=== PATIENT | female | born 1955 | race Caucasian/White ===

== ENCOUNTER 2017-06-02 06:08 | Observation (INO) | payer BC, OTHER ==
[~2017-06-02] VITALS: Ht 170.2 cm; Wt 90.7 kg
[2017-06-02] VITALS (9 sets, daily range): BP systolic 130–180; BP diastolic 62–97
--- NOTE | ~2017-06-02 | O ---
[facility] [place] [address] OPERATIVE REPORT Name: EUFEMIA JUNG Room #: 402-P [facility]#: [id number] Admission: 06/02/17 Attend Phys: Pio Wright MD Discharge: Date of : 57 Report #: [id number] THIS REPORT FOR: //name// CC: Jose Juan Wright DATE OF SERVICE: 06/02/2017 PREOPERATIVE DIAGNOSES: 1. Left ankle osteoarthritis. 2. Left hindfoot retained hardware. POSTOPERATIVE DIAGNOSES: 1. Left ankle osteoarthritis. 2. Left hindfoot retained hardware. PROCEDURE: 1. Left total ankle replacement. 2. Left hindfoot hardware removal. SURGEON: Pio Wright M.D. SWITCHBOARD OPERATOR HELPER: Alice Jenkins, critical care for positioning and safe performance of the procedure. ANESTHESIA: General. ESTIMATED BLOOD LOSS: 10 mL. DRAINS: None. TOURNIQUET TIME: 2 hours and 15 minutes. DESCRIPTION OF PROCEDURE: The patient was brought to the operating room where she was placed under general anesthesia. Once under adequate general anesthesia, her left lower extremity was prepped and draped in a sterile manner. The extremity was elevated, exsanguinated, tourniquet placed to 300 mmHg. The patient had two 7.3 mm cannulated screws placed through the posterior tuberosity of the calcaneus. These were then removed utilizing the guidewires for the 7.3 mm cannulated screws and hardware removal set. Once these 2 were removed, an anterior incision approximately 15 cm in length was made along the anterior ankle. Dissection was carried down to the interval between extensor hallucis longus and the anterior tibialis. Exposure was made at the ankle joint extending both medially and laterally to expose both malleoli. The entire anterior joint was able to be evaluated. The guide for the alignment jig was then placed, placing a pin in the proximal tibial tuberosity. The alignment jig [facility] [address] [place] [address] OPERATIVE REPORT Name: EUFEMIA JUNG Room #: 402-P [facility].#: [id number] Admission: 06/02/17 Attend Phys: Pio Wright MD Discharge: Date of : 57 Report #: [id number] was then adjusted for the first cut. This was from the STAR total ankle prosthesis. Once in line and fixed into place with pins, the guide for the tibial cut was then utilized to make the tibial cut with an oscillating saw and then subsequently a reciprocating saw to remove the tibial articular surface. Subsequent to this, the guide for the talar cutting was then placed as well and the posterior cut was then made. The subsequent anterior chamfer and dome cuts were then made. Once the talar cuts were complete, sizing was then made. An extra small talar dome and a medium tibial component were trialed. This seemed to fit well. Therefore, the final and subsequently the talar component was placed. The tibial component was drilled in place for the anterior portions and filled with bone graft from prior cuts and the final trials for the polyethylene were done. A 9 mm poly was then placed into the joint. Excellent alignment and motion was achieved with this, dorsiflexion at 10 degrees and plantar flexion to 40 degrees. Final films were taken noting excellent alignment. The wounds were irrigated copiously and closed in the capsular layer with 2-0 Vicryl, 2-0 Vicryl was used in the deep and subcutaneous tissues and then brandon were used for the skin. The wound was dressed with Xeroform, 4 x 4s and sterile soft compressive dressing was placed. Tourniquet was let down at approximately 2 hours and 15 minutes. Toes were pink and warm with good capillary refill. There were no complications from the procedure. The patient tolerated the procedure well and went to the recovery room without incident. By: 0914 1120 Pio Wright MD /nt
--- NOTE | ~2017-06-02 | EKG ---
[address] [place] [address] ELECTROCARDIOGRAM REPORT Name: EUFEMIA JUNG Room #: 402-P [facility] M.R.#: [id number] Admission: 06/02/17 Attend Phys: Pio Wright MD Discharge: Date of : 57 Report #: [id number] THIS REPORT FOR: //name// [facility] Test Date: 2017-06-02 Test Time: 06:38:11 Pat Name: EUFEMIA JUNG Department: Room: [facility] Gender: F Compensation Expert: CHEPE : 1955 Requested By: Wayne Colmenares Order Number: [id number] MD: Manjinder Razo Measurements Intervals Dudley Rate: 72 P: 42 WV: 162 QRS: -26 QRSD: 106 T: 22 QT: 438 QTc: 480 Interpretive Statements Sinus rhythm Borderline left axis deviation Compared to ECG 12/26/2014 08:37:15 No significant change was found Electronically Signed On 06-02-2017 16:27:39 CDT by Manjinder Razo [email or web address] <ELECTRONICALLY SIGNED> By: Manjinder Razo MD, [facility] 06/02/17 1627 638 7 Mnajinder Razo MD, FACC /EPI
[~2017-06-02 06:08] MED LIST: ACETAMINOPHEN325 M1 OR; BENICAR HCT 201 EACH OR; BYSTOLIC10 MG PO; COZAAR 25 MG TA25 M1 PO; GLIPIZIDE 10 MG10 MG PO; IBUPROFEN 200200 M1 PO; LORTAB 7.5/5001 TA3 OR; METFORMIN HCL500 MG PO; NABUMETONE 500500 M1 PO; PERCOCET 7.5-31 EACH PO; TOPROL XL50 MG OR; TRAMADOL 50 MG50 MG PO
[2017-06-03 04:18] LABS: HEMATOCRIT 36.3 % (37.0-47.0)
[2017-06-03 04:30] VITALS: BP 136/58
[2017-06-03 04:38] LABS: POTASSIUM 3.5 mmol/L (3.5-5.1)
[2017-06-03 08:14] VITALS: BP 138/69
[2017-06-03] MEDS ORDERED: PERCOCET 7.5-31 EACH PO (09:16)
[2017-06-03] MEDS ORDERED: ASPIR-TRIN325 MG PO (09:16)
[2017-06-03 09:24] VITALS: BP 138/69
[2017-06-03 11:24] VITALS: BP 122/62
[2017-06-03 15:17] VITALS: BP 159/62
== END 2017-06-03 15:15 | disposition home or self-care (01) ==
LOC: OR 06:08 → TBA 06:08 → OR 12:08 → 4N 12:09 → OR 14:41 → 4N 06-03 15:15 → ENTRNSPT 06-03 15:18 → EDTRNSPTSTS 06-03 15:20
PROVIDERS: Orthopaedic Surgery Foot and Ankle Surgery
DX: M19.072 Primary osteoarthritis, left ankle and foot (principal); I10 Essential (primary) hypertension; E11.9 Type 2 diabetes mellitus without complications; Z98.890 Other specified postprocedural states; Z79.899 Other long term (current) drug therapy; Z96.698 Presence of other orthopedic joint implants

== ENCOUNTER → 2017-11-07 | Outpatient (CLI) | payer BC, OTHER ==
[~2017-11-07] MED LIST changes: +ASPIR-TRIN325 MG PO
== END ==
LOC: CAT 08:47
DX: M19.072 Primary osteoarthritis, left ankle and foot (principal)

== ENCOUNTER → 2019-12-08 | Outpatient (CLI) | payer OTHER ==
[~2019-12-08] VITALS: Ht 170.2 cm; Wt 86.2 kg
[~2019-12-08] MED LIST changes: +COZAAR 50 MG TA50 M1 PO; +PREDNISONE 10 M10 MG PO
[2019-12-08 13:12] LABS: HEMATOCRIT 44.2 % (37.0-47.0); HEMOGLOBIN 14.9 gm/dL (12.0-15.0); MCH 33.1 pg (26.0-34.0); MCHC 33.8 g/dL (28.0-37.0); MCV 97.8 fL (80.0-100.0); RBC 4.52 mil/uL (4.20-5.00); RDW 13.2 % (10.5-14.5); WBC 6.8 thou/uL (4.0-11.0)
[2019-12-08 13:21] LABS: URINE BILIRUBIN NEGATIVE (Negative); URINE BLOOD NEGATIVE (Negative); URINE CLARITY CLEAR; URINE COLOR YELLOW; URINE GLUCOSE-RANDOM* NEGATIVE (Negative); URINE KETONES NEGATIVE (Negative); URINE LEUKOCYTES-REFLEX NEGATIVE (Negative); URINE NITRITE-REFLEX NEGATIVE (Negative); URINE PROTEIN (DIPSTICK) NEGATIVE (Negative); URINE UROBILINOGEN 0.2 E.U./dl (0.2-1.0)
[2019-12-08 13:26] LABS: ALBUMIN 4.2 g/dL (3.4-5.0); CALCIUM 9.6 mg/dL (8.5-10.1); CREATININE 0.8 mg/dL (0.6-1.0); POTASSIUM 3.7 mmol/L (3.5-5.1)
[2019-12-08 13:27] LABS: INR 1.1; PROTIME 10.9 Seconds (9.3-11.4)
[2019-12-08 23:07] LABS: GLYCOHEMOGLOBIN (HGB A1C) 6.1 % (4.8-5.6)
--- NOTE | 2019-12-09 07:52 | EKG ---
[facility] [place] [address] ELECTROCARDIOGRAM REPORT Name: EUFEMIA JUNG Room #: PRE IN M.R.#: [id number] Admission: Attend Phys: Ady Bird MD Discharge: Date of : 57 Report #: [id number] THIS REPORT FOR: cc: Jose Juan Doss James L. DO Lundgren, Craig H. MD [facility] THIS REPORT FOR: //name// [facility] Test Date: 2019-12-08 Test Time: 13:07:15 Pat Name: EUFEMIA JUNG Department: Room: Gender: F Greeting Card Writer: EDUARDO GAGNON : 1955 Requested By: Ady Bird Order Number: [id number] MD: Manjinder Razo Measurements Intervals Brogue Rate: 61 P: 32 IA: 145 QRS: -28 QRSD: 103 T: 42 QT: 437 QTc: 441 Interpretive Statements Sinus rhythm Borderline left axis deviation Compared to ECG 06/02/2017 06:38:11 No significant changes Electronically Signed On 12-09-2019 7:51:30 CDT by Manjinder Razo [email or web address] <ELECTRONICALLY SIGNED> By: Manjinder Razo MD, [facility] 12/09/19 0751 1307 130 Manjinder Razo MD, [facility] /EPI
== END ==
LOC: PAC 12:35 → TBA 12-22 08:45 → EDSTATUS 12-22 13:21
PROVIDERS: Orthopaedic Surgery
DX: Z01.818 Encounter for other preprocedural examination (principal); M17.11 Unilateral primary osteoarthritis, right knee

== ENCOUNTER 2020-02-21 06:08 | Inpatient (IN) | payer OTHER ==
[2020-02-15 11:04] LABS: HEMATOCRIT 42.4 % (37.0-47.0); HEMOGLOBIN 14.6 gm/dL (12.0-15.0); MCH 33.5 pg (26.0-34.0); MCHC 34.5 g/dL (28.0-37.0); MCV 97.3 fL (80.0-100.0); RBC 4.36 mil/uL (4.20-5.00); RDW 13.2 % (10.5-14.5)
[2020-02-15 11:08] LABS: URINE BILIRUBIN NEGATIVE (Negative); URINE BLOOD NEGATIVE (Negative); URINE CLARITY CLEAR; URINE COLOR YELLOW; URINE GLUCOSE-RANDOM* NEGATIVE (Negative); URINE KETONES NEGATIVE (Negative); URINE NITRITE-REFLEX NEGATIVE (Negative); URINE PROTEIN (DIPSTICK) NEGATIVE (Negative); URINE SPECIFIC GRAVITY <= 1.005 (1.005-1.035); URINE UROBILINOGEN 0.2 E.U./dl (0.2-1.0)
[2020-02-15 11:10] LABS: URINE LEUKOCYTES-REFLEX 1+ (Negative)
[2020-02-15 11:13] LABS: ALBUMIN 4.3 g/dL (3.4-5.0); CALCIUM 9.3 mg/dL (8.5-10.1); CREATININE 0.9 mg/dL (0.6-1.0); POTASSIUM 3.6 mmol/L (3.5-5.1)
[2020-02-15 11:16] LABS: PROTIME 10.7 Seconds (9.3-11.4)
[2020-02-15 12:52] LABS: CASTS None Seen /LPF (None Seen); SQUAMOUS 0-3 Few /LPF (0-3); URINE RBC None Seen /HPF (0-2); URINE WBC-REFLEX 0-5 Rare /HPF (0-5)
[2020-02-15 12:53] LABS: BACTERIA-REFLEX 1-9 Few /HPF (None Seen); CRYSTALS None Seen /LPF (None Seen)
[2020-02-16 03:08] LABS: GLYCOHEMOGLOBIN (HGB A1C) 6.1 % (4.8-5.6)
[~2020-02-21] VITALS: Ht 170.2 cm; Wt 86.2 kg
[2020-02-21] VITALS (8 sets, daily range): BP systolic 126–206; BP diastolic 63–83
--- NOTE | 2020-02-21 08:20 | NUR ---
SPIRITUAL CARE: PRE-SURGERY VISIT WITH PATIENT AND SPOUSE WAS COMPLETED BY THIS DRIFT MINER.
--- NOTE | 2020-02-21 13:47 | NUR ---
PATIENT ADMITTED FROM OR WITH RIGHT TOTAL KNEE REVISION, BEV DRESSING, DANIEL HOSE, POLAR PACK TO TO RIGHT KNEE. PATIENT ALERT AND ORIENTED X 4. UP WITH ASSIST OF GB AND WALKER. PATIENT ON REGULAR DIET. PATIENT HAS LEFT HAND IV WITH IV FLUIDS ORDERED. FEDNMXS1D DONE, EXCEPT CARE PLAN. PATIENT ARRIVED AT 1115. PATIENT C/O PAIN WITH RIGHT KNEE, PAIN MEDS GIVEN BY DARA/RN. WILL REPORT OFF TO THE PRIMARY NURSE/DARA/RN.
--- NOTE | 2020-02-21 19:42 | NUR ---
PT CARE ASSUMED AT 1430 FROM THE OR. A&Ox4. BLOOD GLUCOSE TWICE DAILY. SCD'S/DANIEL HOSES/ POLAR PACK IN PLACE. IV PATENT WITH NO REDNESS OR EDEMA. PT HAS URINATED AND WALKED TO THE BATHROOM. HAS GOTTEN UP WITH PT TODAY. NO NAUSEA OR VOMITTING. FLUIDS INFUSING. FALL PROTOCOL IN PLACE. PAIN MANAGED WELL. PT DECLINED FAMILY UPDATE. CALL LIGHT IN REACH. WILL CONTINUE TO MONITOR. REPORT GIVEN TO EDUARDO JADE.
[2020-02-22 00:35] VITALS: BP 134/58
[2020-02-22 03:20] VITALS: BP 135/67
--- NOTE | 2020-02-22 03:30 | NUR ---
ASSESSED AT START OF SHIFT PT A&OX4 RESTING IN BED. PAIN OF 5/10 MANAGED WITH PO PAIN MEDS SEE EMAR. UP WITH SBA WITH A WALKER TO THE [facility]. POLAR PACK, SCD'S AND BEV DRESSING IN PLACE. INCENTIVE SPIROMETER BY BEDSIDE. IV INTACT AND FLUIDS INFUISING. FALL PREC IN PLACE AND CALL LIGHT IN REACH WILL CONT WITH POC TILL EOS.
[2020-02-22 06:20] LABS: HEMATOCRIT 34.4 % (37.0-47.0); HEMOGLOBIN 11.7 gm/dL (12.0-15.0); MCH 33.6 pg (26.0-34.0); MCV 98.8 fL (80.0-100.0); RBC 3.48 mil/uL (4.20-5.00); RDW 13.3 % (10.5-14.5); WBC 9.6 thou/uL (4.0-11.0)
[2020-02-22 07:10] VITALS: BP 142/53
--- NOTE | 2020-02-22 11:32 | NUR ---
CM REVIEWED CHART AND SPOKE WITH PATIENT. PT REPORTS SHE LIVES AT HOME WITH HER . PT REPORTS HAVING THREE STEPS WITH A HANDRAIL TO ENTER. PT REPORTS SHE NORMALLY AMBULATES INDEPENDENTLY BUT DOES HAVE A WALKER AT HOME TO ASSIST WITH AMBULATION. PT REPORTS ALL HER NEEDS ARE ON ONE LEVEL OF THE HOME. PT REPORTS HAVING A WALKIN SHOWER. PT REPORTS SHE ALREADY HAS OUTPATIENT THERAPY ARRANGED AT [facility] STARTING THIS FRIDAY. PT REPORTS HAVING HER WALKER AND STATES SHE SHOULD HAVE NO NEEDS FROM CM.
[2020-02-22 16:21] VITALS: BP 147/71
--- NOTE | 2020-02-22 18:13 | NUR ---
PT CARE ASSUMED AT 0700. A&Ox4. PT UP TO THE RECLINER AND COMPLEETED A SELFCARE BATH IN THE BATHROOM WITH STANDBY. SCD'S/POLARPACK/ AND TEDHOSES IN PLACE. PT HAS DISCHARGE PENDING ORDERS IN PLACE FOR TOMORROW (02/22). PAIN IS BEING MANAGED MOSTLY WITH PO PAIN MEDICATION. PT AND RT ON BOARD. IV IS PATENT WITH NO REDNESS OR EDEMA. IV ANTIBIOTICS ARE TO BE GIVEN UNTIL PT DISCHARGES AND THEN ONCE CLEARED BY PT THEY CAN BE DC'D WITH NO NEED FOR PO ANTIBIOTICS. FALL PROTOCOL IN PLACE. CALL LIGHT IN PLACE. PT DECLINED FAMILY UPDATE. WILL CONTINUE TO MONITOR.
[2020-02-22 18:59] VITALS: BP 143/60
--- NOTE | 2020-02-23 01:57 | NUR ---
ASSESSED AT START OF SHIFT PT A&OX4 MILD PAIN IN RT KNEE MANAGED BY PO PAIN MEDS. IV INTACT AND ABX INFUSED. UP WITH SBA TO THE BATHROOM. POLAR PACK, SCD'S AND BEV DRESSING IN PLACE. ANTICIPATING D/C TOMORROW. FALL PREC IN PLACE AND CALL LIGHT IN REACH WILL CONT WITH POC TILL EOS.
[2020-02-23 03:57] VITALS: BP 164/67
[2020-02-23 04:00] VITALS: BP 164/67
[2020-02-23 05:30] LABS: HEMATOCRIT 34.3 % (37.0-47.0); HEMOGLOBIN 11.5 gm/dL (12.0-15.0); MCH 33.5 pg (26.0-34.0); MCHC 33.6 g/dL (28.0-37.0); MCV 99.7 fL (80.0-100.0); RBC 3.44 mil/uL (4.20-5.00); RDW 13.5 % (10.5-14.5); WBC 7.5 thou/uL (4.0-11.0)
[2020-02-23 07:50] VITALS: BP 148/71
--- NOTE | 2020-02-23 11:08 | PATH ---
[facility] [place] [address] PATHOLOGY RPT PROCEDURE Name: SHANNON ZUNIGA Room #: 440-P ADM IN M.R.#: [id number] Admission: 02/21/20 Date of : 57 Discharge: Report #: [id number] Path Case #: [id number] [facility] Accession Number: [id number] . 01 Material submitted: . knee - RIGHT KNEE SYNOVIUM. Modifiers: right . 01 Clinical history: . Revision of right knee synovium. . 02 Frozen section diagnosis: . FROZEN SECTION FINAL DIAGNOSIS: Soft tissue "right knee synovium": - Marked chronic inflammation with rare 1 -2 neutrophils/hpf. . These findings were discussed with Dr. Ady Bird and a written report was placed in the patient's chart. ([facility]:pit 02/21/2020) FROZEN SECTION GROSS DESCRIPTION: The specimen is received fresh labeled "Shannon Zuniga right knee synovium" consists of blanco fibroadipose muscular tissue measuring 7.0 x 1.5 x 0.5 cm. The specimen is serially sectioned. A portion of this is frozen and submitted in cassette labeled A1. ([facility]:pit 02/21/2020) . Frozen section performed at [facility], [address] [place] [address]. ROB/DAMIAN . 02 Diagnosis: Soft tissue "right knee synovium": - Moderate chronic synovitis with reactive synovial lined hyperplasia and moderate chronic inflammation. No definite acute inflammation seen. ([facility] 02/22/2020) [facility] 02/22/2020 1446 Local . 02 Electronically signed: . Mark Norris MD, Pathologist NPI- [id number] . 01 Gross description: . SEE FROZEN SECTION FOR GROSS DESCRIPTION. /[facility] 02/21/2020 1251 Local . 02 Pathologist provided ICD-10: M65.9 . 02 [place] [address] PATHOLOGY RPT PROCEDURE Name: SHANNON ZUNIGA Room #: 440-P ADM IN M.R.#: [id number] Admission: 02/21/20 Date of : 57 Discharge: Report #: [id number] Path Case #: [id number] [facility] . [id number], [id number] Specimen Comment: A courtesy copy of this report has been sent to [phone] Specimen Comment: Report sent to Performed at: [address], [place], [place] [id number] MD Kimo oTlbert MD Phone: [phone] Performed at: [address] [id number] MD Lynn Brown MD Phone: [phone]
[2020-02-23 12:15] VITALS: BP 148/71
--- NOTE | 2020-02-23 13:02 | NUR ---
DISCHARGE PAPERS GONE OVER WITH PATIENT SIGNED AND COPY IN CHART. IV ACSESS DCD. ALL BELONGINGS PACKED TO BE SENT WITH PATIENT. PT WAS GIVEN PRN PAIN MED EARLIER. FOLDER WITH PICCO AND POLAR PACK INFORMATION SENT WITH PATIENT.
--- NOTE | 2020-02-25 11:19 | O ---
[facility] [place] [address] OPERATIVE REPORT Name: EUFEMIA JUNG Room #: 440-P [facility] IN M.R.#: [id number] Admission: 02/21/20 Attend Phys: Ady Bird MD Discharge: 02/23/20 Date of : 57 Report #: [id number] THIS REPORT FOR: cc: Syed Biggs MD, Jonathan D. MD Abraham,Ady Killian MD ~ CC: Syed Bird DATE OF SERVICE: 02/21/2020 PREOPERATIVE DIAGNOSIS: Aseptic loosening, right total knee arthroplasty. POSTOPERATIVE DIAGNOSIS: Aseptic loosening, right total knee arthroplasty. PROCEDURE: Revision right total knee arthroplasty, all components. SURGEON: Ady Bird MD VACUUM FORMING MACHINE OPERATOR: Lorraine Glass PA-C. INDICATIONS FOR VACUUM FORMING MACHINE OPERATOR: Throughout the case, extensive retraction and manipulation of the knee was required. This was afforded to me by my assistant professor of nursing. ANESTHESIA: LMA with an adductor canal block. IMPLANTS: [employer]hew revision Legion system, size 5 femur with a 4-mm offset strategic manager and an 18 x 160 stem, a size 3 tibia with a 4-mm offset strategic manager and a 16 x 160 mm stem and a size 21 constrained polyethylene with a 38-mm patella. TOURNIQUET TIME: 93 minutes. ESTIMATED BLOOD LOSS: 25 mL. COMPLICATIONS: None. SPECIMENS: None. CONDITION UPON LEAVING THE OPERATING ROOM: Stable. INDICATIONS FOR PROCEDURE: The patient is a 64-year-old female who had a right total knee arthroplasty in 2004. She initially did very well with this; however, over the past year or so, she has had progressive pain in her knee. She had a bone scan as well as x-rays consistent with aseptic loosening and after discussion with her, she elected for revision total knee arthroplasty. [address] [address] OPERATIVE REPORT Name: EUFEMIA JUNG Room #: 440-P DIS IN M.R.#: [id number] Admission: 02/21/20 Attend Phys: Ady Bird MD Discharge: 02/23/20 Date of : 57 Report #: [id number] Workup for infection was negative. DESCRIPTION OF PROCEDURE: Risks, benefits, alternatives, complications were discussed in detail with the patient including but not limited to risk of anesthesia, risk of damage to nerves, arteries, blood vessels, risk for infection, bleeding, risk for continued knee pain, need for reoperation. Informed consent was obtained from the patient. Right knee was appropriately marked in the preoperative holding area. IV Ancef was given for preoperative antibiotics. She was brought to the operating room and placed in supine position on operating room table. LMA anesthesia was induced without complication. Tourniquet was placed on the right thigh. Right lower extremity was prepped and draped in normal sterile fashion. Timeout was performed properly identifying the patient and procedure as well as the instrumentation and implants. All in the operating room were in agreement. Right lower extremity was exsanguinated, tourniquet was inflated. Tourniquet time was 93 minutes. Previous scar was used and this was opened with 10 blade through the skin. Dissection was taken down to the fascia and deep flaps were developed medially and laterally. Fresh 10 blade was used to make a medial parapatellar arthrotomy and cultures of the fluid were taken x 2. There was normal-appearing synovial fluid. Dissection was taken along the medial and lateral gutters. The polyethylene was then removed and the femoral component was removed fairly easily with minimal dissection around the bone implant interface with an osteotome. Attention was then turned to the tibia, straight osteotomes were used to dissect the interface between the cement and bone and this was then easily removed with a Slap Hammer. The patella was inspected. This was a metal-backed patella and it was actually mobile-bearing patella. The polyethylene was removed and metal was left in place until the end of the case to remove. After this, a cleanup was made of the femur and the tibia. They were sequentially reamed up to a size 16 for the tibia and a size 18 for the femur and tibia was sized, found to have the best fit with a size 3 tibial tray with a 4-mm offset strategic manager in the 12 o'clock position. This was reamed and a trial tibial component was placed. Attention was turned to the femur. This was best sized with a size 5 with a 4-mm offset strategic manager in the 6 o'clock position. A cleanup cut was made on the distal femur and anterior posterior and chamfer cuts were made. Box cut was made and the trial femoral component was placed. This was then trialed with multiple polyethylenes up to a size 21, at which point the size 21 had the best stability varus and valgus throughout range of motion. The metal-backed patella was then removed by dissecting be on the bone-metal interface. This was a bone-ingrowth component and took a little bit of time to remove it. After this, a size 38 patellar trial button was placed. Knee was taken through range of motion, found to be stable, found to have good patellar tracking. Trial components were removed. Bony ends were thoroughly irrigated with normal saline. The components were opened and built on the back table and cemented in place using standard cementation techniques. While the cement cured, a periarticular injection consisting of morphine, ropivacaine, epinephrine, Toradol was placed around the knee joint capsule. After the cement [facility] [address] [address] OPERATIVE REPORT Name: EUFEMIA JUNG Room #: 440-P [facility] IN M.R.#: [id number] Admission: 02/21/20 Attend Phys: Ady Bird MD Discharge: 02/23/20 Date of : 57 Report #: [id number] cured, tourniquet was deflated. Hemostasis was obtained with Bovie cautery. Final size 21 polyethylene was placed. A gram of vancomycin was placed deep in the joint. Fascia was closed with 0 Vicryl, skin was closed with 2-0 Vicryl, skin staple and a BEV dressing was applied. I did fail to mention that we did do an intraoperative frozen section that showed no acute inflammation, only chronic inflammation. The patient then went to the recovery room under care of Anesthesia postoperatively. <ELECTRONICALLY SIGNED> By: Ady Bird MD 02/25/20 1119 1022 1049 Ady Bird MD /nt
== END 2020-02-23 13:45 | disposition home or self-care (01) | DRG 468 ==
LOC: OR 06:08 → TBA 07:40 → PRE 09:32 → OR 10:15 → 4S 10:15 → PRE 10:31 → 4S 11:59 → TBA 11:59 → PRE 12:43 → EDSTATUS 14:35 → OR 14:38 → 4S 02-23 13:45
PROVIDERS: ADMIT Orthopaedic Surgery; ATTEND Orthopaedic Surgery
PROC: 0SPC0JZ Removal of Synthetic Substitute from Right Knee Joint, Open Approach (ICD-10-PCS; principal; 2020-02-21)
PROC: 0SRC0J9 Replacement of Right Knee Joint with Synthetic Substitute, Cemented, Open Approach (ICD-10-PCS; principal; 2020-02-21)
PROC: 3E0T3BZ Introduction of Anesthetic Agent into Peripheral Nerves and Plexi, Percutaneous Approach (ICD-10-PCS; 2020-02-21)
DX: T84.032A Mechanical loosening of internal right knee prosthetic joint, initial encounter (principal); I10 Essential (primary) hypertension; E11.9 Type 2 diabetes mellitus without complications; Y83.1 Surgical operation with implant of artificial internal device as the cause of abnormal reaction of the patient, or of later complication, without mention of misadventure at the time of the procedure; Y92.89 Other specified places as the place of occurrence of the external cause; Z90.49 Acquired absence of other specified parts of digestive tract
CPT/HCPCS: 10102; 50010; 50101; 50415; 50954; 51130; 51225; 51320; 51412; 52001; 52282; 53000; 53078; 56528; 57095; 57103; 57110; 57116; 57180; 57982; 57983; 57984; 57985; 57986; 57987; 57988; 62110; 62900; 70005